=== PATIENT | female | born 1985 | race Caucasian/White ===

== ENCOUNTER → 2016-07-16 | Outpatient (CLI) | payer OTHER | LOC: COL.RAD 07:42 | DX: N97.9 Female infertility, unspecified (principal) | CPT/HCPCS: Q9967 ==

== ENCOUNTER → 2020-07-04 | Outpatient (CLI) | payer OTHER | LOC: MHCPAIN 14:15 | DX: M47.812 Spondylosis without myelopathy or radiculopathy, cervical region (principal); M54.2 Cervicalgia; M54.12 Radiculopathy, cervical region | CPT/HCPCS: G0463 ==